=== PATIENT | female | born 1970 | race Caucasian/White ===

== ENCOUNTER 2018-11-14 09:34 | Day surgery (SDC) | payer OTHER ==
[~2018-11-14] VITALS: Ht 152.4 cm; Wt 70.8 kg
[2018-11-14] VITALS (12 sets, daily range): BP systolic 107–118; BP diastolic 53–64; PULSE 65–86; RESP 14–17; Ht 152.4 cm; Wt 70.8 kg
[~2018-11-14 09:34] MED LIST: CEFAZOLIN 2 GM/50 ML (PMX) 50 ML IVPB ONE; CLIN300C10 PO; DOCU-144 PO; HYDR-906 PO; IBUP-1982 PO; PANT40TA4 PO; SEVOFLURANE 15 MIN ONE; SOD CHLORIDE 0.9% 1,000 ML IV SCH
[2018-11-14] MEDS ORDERED: GEMF600T8 PO (09:58)
[2018-11-14] MEDS ORDERED: NOL20 PO (09:58)
[2018-11-14] MEDS ORDERED: HEPARIN 1000 UNITS/ML 10 ML INJ ONE (10:16)
--- NOTE | 2018-11-14 10:59 | PREAC ---
Date/Time of Note Date/Time of Note DATE: 11/14/18 TIME: 10:57 Anesthesia Eval and Record Evaluation Time Pre-Procedure Interview DATE: 11/14/18 TIME: 10:57 Age 48 Sex female NPO: 8 hrs Preoperative diagnosis history of breast cancer Planned procedure portacatheter removal Past Medical History Past Medical History: None Cardio: Dyslipidemia Surgery & Anesthesia Issues No known issue Meds Anticoagulation: No Beta Jad within 24 hr: No Reason Beta Jad not given: Pt. not on B-Jad Reported Medications Gemfibrozil* (Gemfibrozil*) 600 Mg Tablet, 600 MG PO BID, TAB 11/14/18 Tamoxifen Citrate* (Tamoxifen Citrate*) 20 Mg Tab, 20 MG PO DAILY, TAB 11/14/18 Discontinued Reported Medications Ibuprofen* (Ibuprofen*) 200 Mg Capsule, 200 MG PO Q6 for PAIN LEVEL 1-5, CAP 01/30/16 Clindamycin Hcl* (Clindamycin Hcl*) 300 Mg Capsule, 300 MG PO Q8, CAP 01/30/16 Discontinued Scripts Docusate Sodium* (Colace*) 100 Mg Capsule, 100 MG PO BID, #30 CAP Prov:MAIA FRIEDMAN 01/31/16 Pantoprazole (Protonix) 40 Mg Tabec, 40 MG PO DAILY, #14 TAB Prov:MAIA FRIEDMAN 01/31/16 Hydrocodone Bit-Acetaminophen ([place]) 5-325 Mg Tablet, 1 TAB PO Q8 for PAIN, #10 TAB Prov:MAIA FRIEDMAN 01/31/16 Current Medications Sodium Chloride 1,000 ml @ 75 mls/hr [id number] IV ; Start 11/14/18 at 09:00; Stop 11/14/18 at 22:19 Meds reviewed: Yes Allergies Coded Allergies: nitrofurantoin (Verified Allergy, Severe, ITCHY, 11/14/18) PER PT sulfamethoxazole (Verified Allergy, Unknown, 11/14/18) trimethoprim (Verified Allergy, Unknown, 11/14/18) Allergies Reviewed: Yes Labs/Studies Labs Reviewed: Reviewed by anesthesiologist test: Negative Pre-procedure Exam Last vitals Vital Signs Date Temp Pulse Resp B/P (MAP) Pulse Ox O2 O2 Flow FiO2 Time Delivery Rate 11/14/18 96.7 65 16 108/64 97 Room Air 10:39 (79) Airway: Adequate mouth opening, Adequate thyromental dist Mallampati: Mallampati II Teeth: Normal Lung: Normal Heart: Normal ASA Physical Status ASA physical status: 2 Emergency: None Planned Anesthetic General/MAC: LMA Planned Pain Management Parenteral pain med Pre-operative Attestations Prior to commencing anesthesia and surgery, the patient was re-evaluated, there was verification of: *The patient's identity *The results of appropriate recent lab work and preoperative vital signs *The above evaluation not changing prior to induction *Anesthetic plan, risk benefits, alternative and complications discussed with patient/family; questions answered; patient/family understands, accepts and wishes to proceed. Wedding Cake Designer used EARLINE JAMES MD Nov 14, 2018 10:59
[2018-11-14] MEDS ORDERED: PROCHLORPERAZINE 10 MG INJ IV PRN (11:00)
[2018-11-14] MEDS ORDERED: FENTAnyl 50 MCG/ML VIAL IV PRN (11:00)
[2018-11-14] MEDS ORDERED: HYDROmorphONE 1 MG/5 ML IV SYRINGE IV PRN ×3 (11:00)
[2018-11-14] MEDS ORDERED: ONDANSETRON 4 MG INJ IV PRN (11:00)
[2018-11-14] MEDS ORDERED: DIPHENHYDRAMINE 50 MG INJ IV PRN (11:00)
[2018-11-14] MEDS ORDERED: MEPERIDINE 25 MG INJ IV PRN (11:00)
[2018-11-14] MEDS ORDERED: OXYCODONE/ACETAMINOPHEN (5/325) TAB PO PRN (11:00)
[2018-11-14] MEDS ORDERED: LIDOCAINE 2% (SDV) 5 ML INJ ONE (11:05)
[2018-11-14] MEDS ORDERED: MIDAZOLAM 1 MG/ML 2 ML INJ ONE (11:05)
[2018-11-14] MEDS ORDERED: PROPOFOL 20 ML ONE (11:05)
[2018-11-14] MEDS ORDERED: CEFAZOLIN 1 GM INJ ONE (11:18)
[2018-11-14] MEDS ORDERED: ONDANSETRON 4 MG INJ ONE (11:18)
[2018-11-14] MEDS ORDERED: DEXAMETHASONE 4 MG/ML 5 ML INJ ONE (11:18)
[2018-11-14] MEDS ORDERED: FENTAnyl 50 MCG/ML VIAL ONE (11:23)
[2018-11-14] MEDS ORDERED: EPHEDrine SULFATE 50 MG/5 ML SYG ONE (11:28)
--- NOTE | 2018-11-14 11:44 | SIPON ---
Date/Time of Note Date/Time of Note DATE: 11/14/18 TIME: 11:43 Operative Report Preoperative Diagnosis History of left breast cancer need for chemo port removal Postoperative Diagnosis Same Operation/Procedure Performed Removal of chemo port right subclavian location Surgeon see signature line visual merchandising assistant Dr Mcfarland Anesthesia: general Estimated blood loss: 0 - 10 ml's Transfusion Required none Specimen Chemo-Port gross only Grafts/Implants none Complications none UZIEL AGUIRRE MD Nov 14, 2018 11:44
--- NOTE | 2018-11-14 11:53 | PAC ---
Date/Time of Note Date/Time of Note DATE: 11/14/18 TIME: 11:52 Post-Anesthesia Notes Post-Anesthesia Note Last documented vital signs Vital Signs Date Temp Pulse Resp B/P (MAP) Pulse Ox O2 O2 Flow FiO2 Time Delivery Rate 11/14/18 98.0 11:46 11/14/18 65 16 108/64 97 Room Air 10:39 (79) Activity: WNL Respiratory function: WNL Cardiovascular function: WNL Mental status: Baseline Pain reasonably controlled: Yes Hydration appropriate: Yes Nausea/Vomiting absent: Yes Comments BP: 1113/61 HR: 79 RR: 15 T: 97.8 SaO2: 100% EARLINE JAMES MD Nov 14, 2018 11:53
--- NOTE | 2018-11-14 12:34 | OPR ---
DATE OF OPERATION: 11/14/2018 PREOPERATIVE DIAGNOSIS: History of left breast cancer, need for chemo port removal. POSTOPERATIVE DIAGNOSIS: History of left breast cancer, need for chemo port removal. OPERATION PERFORMED: Removal of chemo port, right subclavian location. ANESTHESIA: General. ANESTHESIOLOGIST: Sherine Lomax MD SURGEON: Kj Bernal MD UMBRELLA MENDER: Fanta Mcfarland MD INDICATIONS FOR PROCEDURE: The patient is a 48-year-old female who was previously treated for invasi ve cancer of her left breast. She successfully completed her treatment and now requesting removal of her chemo port. She consented and was scheduled for surgery. DESCRIPTION OF PROCEDURE: The patient was brought to the operating theater, placed under general ane sthesia. The right anterior thorax was prepped and draped in usual sterile fashion. The previous gomez rgical incisional scar over the port site was reincised with 15-blade scalpel. Subcutaneous tissue w as dissected with cautery. With combination of sharp dissection and cautery, the port was dissected free from the adhesions associated with it. It was then gently removed while pressure was held on ri ght infraclavicular location. It appeared grossly intact. It was sent for pathologic analysis to co nfirm that it was intact. The wound was irrigated. Minimal bleeding was controlled with cautery and then the skin was reapproximated with a 4-0 Vicryl suture in subcuticular fashion and benzoin and St raghu-Strips were applied. The patient tolerated procedure well. Estimated blood loss was 5 mL. Ther e were no complications and the patient was transported in stable condition to the recovery room. Dictated By: KJ BERNAL MD TL/JOSE Conf#: [id number] DID#: [id number]
== END 2018-11-14 13:17 | disposition home or self-care (01) ==
LOC: SDS 09:34
PROVIDERS: ATTEND Surgery Surgical Oncology
DX: Z45.2 Encounter for adjustment and management of vascular access device (principal); Z85.3 Personal history of malignant neoplasm of breast; E78.5 Hyperlipidemia, unspecified
CPT/HCPCS: 36590; J0690; J1100; J1644; J2250; J2405; J3010; Z7610; 88300